=== PATIENT | female | born 1960 | race Caucasian/White ===

== ENCOUNTER → 2016-11-06 | Outpatient (CLI) | payer OTHER ==
--- NOTE | 2016-11-07 12:59 | MM ---
Reason for exam: screening (asymptomatic). Last mammogram was performed 3 years ago. History: Family history of breast cancer in paternal aunt. Took hormonal contraceptives for 10 years. Taking other hormone for 6 months. Physical Findings: A clinical breast exam by your physician is recommended on an annual basis and results should be correlated with mammographic findings. MG Screening Mammo w CAD Bilateral CC, MLO, and XCCL view(s) were taken. Prior study comparison: October 28, 2013, bilateral MG screening mammo w CAD. The breast tissue is heterogeneously dense. This may lower the sensitivity of mammography. Finding: There are a few typically benign round calcifications in the right breast. Increased fatty tissue since 2014. Asymmetric breast tissue in the right breast. There is no discrete abnormality. ASSESSMENT: Benign, BI-RAD 2 RECOMMENDATION: Routine screening mammogram of both breasts in 1 year.
== END | disposition home or self-care (01) ==
LOC: RADMAMWWP 14:43
PROVIDERS: ATTEND Internal Medicine
DX: Z12.31 Encounter for screening mammogram for malignant neoplasm of breast (principal)

== ENCOUNTER 2019-10-11 09:09 | Day surgery (SDC) | payer OTHER ==
[2019-10-06 13:52] VITALS: BMI 43.8
[~2019-10-11 09:09] MED LIST: LACTATED RINGERS 1,000 ML IV SCH; LIDOCAINE 1% (10MG/ML) FOR IV START INTRADERMA PRN
[2019-10-11 09:33] VITALS: TEMP 97.8
[2019-10-11] MEDS ORDERED: PROPOFOL 10 MG/ML 20 ML VIAL IV ONE (09:57)
--- NOTE | 2019-10-11 10:01 | P.GSHP ---
History of Present Illness H&P Date: 10/11/19 Chief Complaint: Colon cancer screening, history of polyps Patient today for colonoscopy. Last colonoscopy 5.5 years ago. Patient had cecal polyp tubular adenoma at that time. Family history of colon cancer in her grandmother parents. No bowel complaints. No rectal bleeding. Past Medical History Past Medical History: GERD/Reflux, Hypertension Additional Past Medical History / Comment(s): hx kidney stones, hayfever, endometriosis History of Any Multi-Drug Resistant Organisms: None Reported Past Surgical History: Cholecystectomy, Orthopedic Surgery Additional Past Surgical History / Comment(s): rt upper arm plates and screws, exploratory laparotomy, kidney stone stent placed Past Anesthesia/Blood Transfusion Reactions: Previous Problems w/ Anesthesia, Family History of Problems w/ Anesthesia Additional Past Anesthesia/Blood Transfusion Reaction / Comment(s): slow to wake up. sisters-ponv Smoking Status: Never smoker Medications and Allergies Home Medications Medication Instructions Recorded Confirmed Type Biotin/Carotene 1 tab PO DAILY 10/06/19 10/06/19 History Celecoxib [CeleBREX] 200 mg PO DAILY 10/06/19 10/06/19 History Ergocalciferol (Vitamin D2) 50,000 unit PO TU 10/06/19 10/06/19 History [Drisdol] Esomeprazole Magnesium 40 mg PO DAILY 10/06/19 10/06/19 History Multivitamins, Thera [Multivitamin 1 tab PO DAILY 10/06/19 10/06/19 History (formulary)] amLODIPine BESYLATE 5 mg PO DAILY 10/06/19 10/06/19 History Allergies Allergy/AdvReac Type Severity Reaction Status Date / Time No Known Allergies Allergy Verified 10/06/19 13:43 Surgical - Exam Vital Signs Temp Pulse Resp BP Pulse Ox 97.8 F 91 16 167/97 96 10/11/19 09:32 10/11/19 09:32 10/11/19 09:32 10/11/19 09:32 10/11/19 09:32 Physical exam: General: Well-developed, well-nourished HEENT: Normocephalic, sclerae nonicteric Abdomen: Nontender, nondistended Extremities: No edema Neuro: Alert and oriented Assessment and Plan (1) Colon cancer screening Narrative/Plan: Will proceed with colonoscopy at this time Current Visit: Yes Status: Acute Code(s): Z12.11 - ENCOUNTER FOR SCREENING FOR MALIGNANT NEOPLASM OF COLON SNOMED Code(s): 916858515
--- NOTE | 2019-10-11 10:17 | P.PCN ---
Date of Procedure: 10/11/19 Procedure(s) Performed: PREOPERATIVE DIAGNOSIS: Colon cancer screening, history of polyps POSTOPERATIVE DIAGNOSIS: Diverticulosis PROCEDURE: Colonoscopy ANESTHESIA: MAC SURGEON: Kartik Mckeon M.D. SPECIMENS: None ENDOSCOPIC PROCEDURE: The patient was placed on the endoscopy table in the left decubitus position. The Olympus colonoscope was inserted into the anus and passed under direct visualization to the base of the cecum. The appendiceal orifice was visualized. From that point the scope was slowly withdrawn inspecting all surfaces carefully. There were no neoplastic inflammatory or polypoid lesions throughout the cecum, ascending, transverse, descending, sigmoid and rectum. There was mild sigmoid diverticulosis noted. Digital rectal examination was normal. The patient was taken to the recovery room in stable condition per anesthesia guidelines. RECOMMENDATIONS: Resume diet. Follow-up colonoscopy 5 years
[2019-10-11 10:45] VITALS: BP 140/80; PULSE 79; RESP 18
== END 2019-10-11 11:13 | disposition home or self-care (01) ==
LOC: ORWHC2ENDO 09:09
PROVIDERS: ATTEND Surgery
DX: Z12.11 Encounter for screening for malignant neoplasm of colon (principal); K57.30 Diverticulosis of large intestine without perforation or abscess without bleeding; Z86.010 Personal history of colon polyps; Z80.0 Family history of malignant neoplasm of digestive organs; I10 Essential (primary) hypertension; K21.9 Gastro-esophageal reflux disease without esophagitis; E66.01 Morbid (severe) obesity due to excess calories; Z90.49 Acquired absence of other specified parts of digestive tract; Z87.442 Personal history of urinary calculi; Z79.1 Long term (current) use of non-steroidal anti-inflammatories (NSAID); Z79.899 Other long term (current) drug therapy; Z98.890 Other specified postprocedural states; Z68.41 Body mass index [BMI] 40.0-44.9, adult
CPT/HCPCS: G0105; J2704; 45378

== ENCOUNTER → 2020-08-29 | Outpatient (CLI) | payer OTHER | END | disposition home or self-care (01) | CPT/HCPCS: 77067 ==

== ENCOUNTER → 2021-09-03 | Outpatient (CLI) | payer OTHER ==
--- NOTE | 2021-09-04 08:40 | MM ---
Reason for Exam: Screening (asymptomatic). Last mammogram was performed 1 year(s) and 1 month(s) ago. Patient History: Menarche at age 14. First Full-Term at age 26. Postmenopausal. Patient used Hormonal Contraceptives for 10 years. Paternal aunt had breast cancer. Risk Values: Perri 5 year model risk: 1.2%. NCI Lifetime model risk: 6.7%. Prior Study Comparison: 10/28/2013 Bilateral Screening Mammogram, [facility]. 11/06/2016 Bilateral Screening Mammogram, [facility]. 08/29/2020 Bilateral Screening Mammogram, [facility]. Tissue Density: There are scattered fibroglandular densities. Findings: Analyzed By CAD. Some stable small well-circumscribed masses bilaterally. On X CCL views suggestion of new 8 mm focal asymmetric density anterior to middle depth approximately 8 cm distance from nipple in the right breast and oval 9 mm focal asymmetric density 8 cm distance from nipple anterior to middle depth outer aspect left breast. Corresponding abnormality is not clearly seen on MLO views. There is no suspicious group of microcalcifications in either breast. Overall Assessment: Incomplete: need additional imaging evaluation, BI-RAD 0 Management: Special View Mammogram of both breasts. Return for additional spot views and true lateral views of both breasts. 3-D imaging preferred if possible. Electronically signed and approved by: Davon Johnston M.D.
== END | disposition home or self-care (01) ==
LOC: RADMAMWWP 09:21
PROVIDERS: ATTEND Internal Medicine
DX: Z12.31 Encounter for screening mammogram for malignant neoplasm of breast (principal)
CPT/HCPCS: 77067

== ENCOUNTER → 2021-09-05 | Outpatient (CLI) | payer OTHER ==
--- NOTE | 2021-09-05 10:39 | USB ---
Reason for Exam: Additional evaluation requested from abnormal screening. Last screening mammogram was performed less than 1 month ago. Patient History: Menarche at age 14. First Full-Term at age 26. Postmenopausal. Patient used Hormonal Contraceptives for 10 years. Paternal aunt had breast cancer. Risk Values: Perri 5 year model risk: 1.2%. NCI Lifetime model risk: 6.7%. Prior Study Comparison: 11/06/2016 Bilateral Screening Mammogram, [facility]. 08/29/2020 Bilateral Screening Mammogram, [facility]. 09/03/2021 Bilateral MG screening mammo w CAD, [facility]. Tissue Density: There are scattered fibroglandular densities. Findings: Analyzed By CAD. Mammogram Nodularity persists upper outer quadrant bilaterally. Ultrasound is advised.. Technique: Method: Targeted. Patient Position: Supine. scanned bilateral upper outer quads. Findings: The upper outer quadrant of both breasts was scanned. Right 1000 8CFN [id number] side by side versus septated cyst, Left 300 7CFN [id number] lobular cyst. Overall Assessment: Benign, BI-RAD 2 Assessment: MG 3D work up w/cad [facility] - Bilateral: Incomplete: need additional imaging evaluation, BI-RAD 0. US breast limited BILAT - Bilateral: Benign, BI-RAD 2. Management: Screening Mammogram of both breasts in 1 year. A clinical breast exam by your physician is recommended on an annual basis and results should be correlated with mammographic findings. Results were given to the patient verbally at the time of exam. Electronically signed and approved by: Luigi Villagran M.D. Radiologis
== END | disposition home or self-care (01) ==
LOC: RADMAMWWP 08:49
PROVIDERS: ATTEND Internal Medicine
DX: R92.8 Other abnormal and inconclusive findings on diagnostic imaging of breast (principal)
CPT/HCPCS: 77062; 77066

== ENCOUNTER → 2022-09-08 | Outpatient (CLI) | payer OTHER ==
--- NOTE | 2022-09-08 11:46 | MM ---
Reason for Exam: Screening (asymptomatic). Last screening mammogram was performed 12 month(s) ago. Patient History: Menarche at age 14. First Full-Term at age 26. Postmenopausal. Patient used Hormonal Contraceptives for 10 years. Paternal aunt had breast cancer. Risk Values: Perri 5 year model risk: 1.3%. NCI Lifetime model risk: 6.6%. Prior Study Comparison: 08/29/2020 Bilateral Screening Mammogram, [facility]. 09/03/2021 Bilateral MG screening mammo w CAD, [facility]. 09/05/2021 Bilateral MG 3D work up w/cad [facility], [facility]. Tissue Density: The breast tissue is almost entirely fat. Findings: Analyzed By CAD. There is no suspicious group of microcalcifications or new suspicious mass in either breast. Overall Assessment: Negative, BI-RAD 1 Management: Screening Mammogram of both breasts in [address] [facility] will attempt to contact patient to return for supplemental views and ultrasound if indicated. Patient should continue monthly self-breast exams. A clinical breast exam by your physician is recommended on an annual basis. This exam should not preclude additional follow-up of suspicious palpable abnormalities. Note on Perri scores and lifetime risk: 1. A Perri score greater than 3% is considered moderate risk. If this is the case, consider specialist referral to assess eligibility for a risk reducing agent. 2. If overall lifetime risk for the development of breast cancer is 20% or higher, the patient may qualify for future screening with alternating mammogram and breast MRI. Electronically signed and approved by: Lencho Garcia DO
== END | disposition home or self-care (01) ==
LOC: RADMAMWWP 11:20
PROVIDERS: ATTEND Internal Medicine
DX: Z12.31 Encounter for screening mammogram for malignant neoplasm of breast (principal); Z78.0 Asymptomatic menopausal state; Z80.3 Family history of malignant neoplasm of breast
CPT/HCPCS: 77063; 77067

== ENCOUNTER → 2023-09-24 | Outpatient (CLI) | payer OTHER ==
--- NOTE | 2023-09-25 09:50 | MM ---
Reason for Exam: Screening (asymptomatic). Last screening mammogram was performed 12 month(s) ago. Patient History: Menarche at age 14. First Full-Term at age 26. Postmenopausal. Patient used Hormonal Contraceptives for 10 years. Paternal aunt had breast cancer. Risk Values: Perri 5 year model risk: 1.3%. NCI Lifetime model risk: 6.4%. Prior Study Comparison: 09/03/2021 Bilateral MG screening mammo w CAD, [facility]. 09/05/2021 Bilateral MG 3D work up w/cad [facility], [facility]. 09/08/2022 Bilateral MG 3D screening mammo w/cad, [facility]. Tissue Density: There are scattered areas of fibroglandular density. Findings: Analyzed By CAD. There is no suspicious group of microcalcifications or new suspicious mass in either breast. Overall Assessment: Negative, BI-RAD 1 Management: Screening Mammogram of both breasts in 1 year. . Patient should continue monthly self-breast exams. A clinical breast exam by your physician is recommended on an annual basis. This exam should not preclude additional follow-up of suspicious palpable abnormalities. Note on Perri scores and lifetime risk: 1. A Perri score greater than 3% is considered moderate risk. If this is the case, consider specialist referral to assess eligibility for a risk reducing agent. 2. If overall lifetime risk for the development of breast cancer is 20% or higher, the patient may qualify for future screening with alternating mammogram and breast MRI. Electronically signed and approved by: Luigi Villagran M.D. Radiologis
== END | disposition home or self-care (01) ==
LOC: RADMAMWWP 11:54
PROVIDERS: ATTEND Internal Medicine
DX: Z12.31 Encounter for screening mammogram for malignant neoplasm of breast (principal); Z78.0 Asymptomatic menopausal state; Z80.3 Family history of malignant neoplasm of breast; R92.323 Mammographic fibroglandular density, bilateral breasts
CPT/HCPCS: 77063; 77067

== ENCOUNTER → 2024-08-31 | Outpatient (CLI) | payer OTHER ==
[2024-08-31 13:27] LABS: INR 0.9 (<1.2); Partial Thromboplastin Time 24.5 sec (22.0-30.0); Prothrombin Time 10.4 sec (10.0-12.5)
[2024-08-31 15:14] LABS: HCT 45.3 % (37.2-46.3); HGB 15.2 g/dL (12.0-15.0); MCH 29.9 pg (27.0-32.0); MCHC 33.6 g/dL (32.0-37.0); MCV 89.0 FL (80.0-97.0); NRBC Per 100 WBC 0 X 10*3/uL (0.00-0.01); Platelet Count 252 X 10*3/uL (140-440); RBC 5.09 X 10*6/uL (4.10-5.20); RDW 13.6 % (11.5-14.5); WBC 9.76 X 10*3/uL (4.50-10.00)
[2024-08-31 15:36] LABS: ALT 37 U/L (8-44); AST 30 U/L (13-35); Albumin 4.5 g/dL (3.8-4.9); Albumin/Globulin Ratio 1.96 Ratio (1.60-3.17); Alkaline Phosphatase 111 U/L (41-126); Anion Gap 13.50 mmol/L (4.00-12.00); BUN/Creat Ratio 17.40 Ratio (12.00-20.00); Blood Urea Nitrogen 17.4 mg/dL (9.0-27.0); Calcium 9.9 mg/dL (8.7-10.3); Carbon Dioxide 24.5 mmol/L (21.6-31.8); Chloride 103 mmol/L (96-109); Globulin 2.3 g/dL (1.6-3.3); Glucose 100 mg/dL (70-110); Potassium 4.2 mmol/L (3.5-5.5); Sodium 141 mmol/L (135-145); Total Protein 6.8 g/dL (6.2-8.2)
== END | disposition home or self-care (01) ==
LOC: LABPAT 12:08
PROVIDERS: ATTEND Orthopaedic Surgery
DX: Z01.818 Encounter for other preprocedural examination (principal); I21.3 ST elevation (STEMI) myocardial infarction of unspecified site; I49.3 Ventricular premature depolarization; E11.9 Type 2 diabetes mellitus without complications; M17.11 Unilateral primary osteoarthritis, right knee; Z22.322 Carrier or suspected carrier of Methicillin resistant Staphylococcus aureus
CPT/HCPCS: 36415; 80053; 83036; 85027; 85610; 85730; 87070; 93005

== ENCOUNTER → 2024-09-12 | Outpatient (CLI) | payer OTHER ==
--- NOTE | 2024-09-12 08:56 | CT ---
EXAMINATION TYPE: CT right knee - TRINI Protocol DATE OF EXAM: 09/12/2024 8:38 AM COMPARISON: None. CLINICAL INDICATION: Female, 64 years old with history of M17.11 PRIMARY OSTEOARTH OR RT KNEE, M25.56 1; PHH, RT Knee TRINI, pain, TECHNIQUE: Axial images were obtained of the bilateral hips, knee and bilateral ankles: CT right kne e - TRINI Protocol, Additional coronal and sagittal reformatted images and soft tissue and bone window were obtained for review of the bilateral hips, knee and bilateral ankles. Contrast used: mL of , (None if empty) Oral contrast used: (None if empty) CT DLP: 1011 mGycm, Automated exposure control for dose reduction was used. FINDINGS: The visualized portion of the hips demonstrate mild osteoarthrosis changes with osteophyte formation of the acetabulum. No acute intrapelvic process. The bony structures of the pelvis are intact. The visualized knee demonstrates osteophyte formation of the tibial plateau, the patella and femoral condyles. There is complete joint space narrowing and subchondral sclerosis in the medial knee. No e vidence of fracture. The visualized ankles demonstrates multifocal osteoarthrosis changes with osteophyte formation and mi ld joint space narrowing. No evidence of fractures. Other: No significant findings. IMPRESSION: End-stage osteoarthrosis changes of the knee. [facility], , 09/12/2024 8:54 AM
== END | disposition home or self-care (01) ==
LOC: RADCTMAIN 07:53
PROVIDERS: ATTEND Orthopaedic Surgery
DX: M17.11 Unilateral primary osteoarthritis, right knee (principal)

== ENCOUNTER 2024-09-23 10:15 | Day surgery (SDC) | payer OTHER ==
[2024-09-16 15:10] VITALS: BMI 47.7
[~2024-09-23 10:15] MED LIST changes: +DEXAMETHASONE SOD PHOSPHATE 10 MG/ML 1 ML VIAL IV PRN; -LACTATED RINGERS 1,000 ML IV SCH; -LIDOCAINE 1% (10MG/ML) FOR IV START INTRADERMA PRN; +TRANEXAMIC 1,000 MG/100ML-NACL 1,000 MG in SALINE 1 100ML.BAG IV PRN; +TRANEXAMIC 1,000 MG/100ML-NACL 1,000 MG in SALINE 1 100ML.BAG IVPB PRN
[2024-09-23] MEDS ORDERED: HYDROmorphone 0.5 MG/0.5 ML SYRINGE IVP PRN ×3 (10:35→14:31)
[2024-09-23] MEDS ORDERED: fentaNYL (PF) 50 MCG/ML 2 ML AMP IVP PRN (10:35)
[2024-09-23] MEDS ORDERED: LIDOCAINE 1% (10MG/ML) FOR IV START INTRADERMA PRN (10:35)
[2024-09-23] MEDS: IV FLUID CONTINUATION 1,000 ML IV ONE (10:55)
[2024-09-23] MEDS: ONDANSETRON 4 MG/2 ML VIAL IVP PRN ×2 (11:00→18:31)
[2024-09-23] MEDS: DEXAMETHASONE SOD PHOSPHATE 4 MG/ML 1 ML VIAL IV ONE (11:00)
[2024-09-23] MEDS: LACTATED RINGERS 1,000 ML IV SCH (11:00)
[2024-09-23] MEDS: oxyCODONE ER 10 MG TAB.ER.12H PO PRN (11:01)
[2024-09-23] MEDS: FAMOTIDINE 20 MG/2 ML VIAL IVP PRN (11:01)
[2024-09-23] MEDS: KETOROLAC 15 MG/ML 1 ML VIAL IVP PRN (11:01)
[2024-09-23] MEDS: DOCUSATE 100 MG CAP PO PRN (11:02)
[2024-09-23] MEDS: ACETAMINOPHEN TAB 500 MG TAB PO PRN ×2 (11:02→21:37)
[2024-09-23] MEDS: MIDAZOLAM 2 MG/2 ML VIAL IV PRN (11:16)
[2024-09-23] MEDS: fentaNYL (PF) 50 MCG/ML 2 ML AMP IVP STA (11:52)
--- NOTE | 2024-09-23 11:54 | P.ANPRN ---
Procedure Note - Anesthesia - Nerve Block Performed Right iPack Single Time Out Performed: Yes Date of Procedure: 09/23/24 Procedure Start Time: 11:16 Procedure Stop Time: 11:21 Location of Patient: PreOp Indication: Acute Post-Operative Pain, Analgesia, Requested by Surgeon Sedation Type: Sedate with meaningful contact maintained Preparation: Sterile Prep Position: Left Lateral Catheter: None Needle Types: Pajunk Needle Gauge: 21 Ultrasound used to visualize needle placement: Yes Ultrasound used to observe medication spread: Yes Injectate: 0.5% Ropivacaine (see comment for volume) (Ropivacaine 20 mL plus Decadron 4 mg.) Blood Aspirated: No Pain Paresthesia on Injection Noted: No Resistance on Injection: Normal Image Stored and Saved: Yes Events: Uneventful and Well Tolerated
--- NOTE | 2024-09-23 11:55 | P.ANPRN ---
Procedure Note - Anesthesia - Nerve Block Performed Right Adductor Canal Single Time Out Performed: Yes Date of Procedure: 09/23/24 Procedure Start Time: Procedure Stop Time: Location of Patient: PreOp Indication: Acute Post-Operative Pain, Analgesia, Requested by Surgeon Sedation Type: Sedate with meaningful contact maintained Preparation: Sterile Prep Position: Sitting Catheter: None Needle Types: Pajunk Needle Gauge: 21 Ultrasound used to visualize needle placement: Yes Ultrasound used to observe medication spread: Yes Injectate: 0.5% Ropivacaine (see comment for volume) (Ropivacaine 20 mL plus Decadron 4 mg) Blood Aspirated: No Pain Paresthesia on Injection Noted: No Resistance on Injection: Normal Image Stored and Saved: Yes Events: Uneventful and Well Tolerated
[2024-09-23] MEDS ORDERED: MIDAZOLAM 2 MG/2 ML VIAL ONE (12:16)
[2024-09-23] MEDS ORDERED: LIDOCAINE 1% INJ 10MG/ML (20 ML MDV) ONE (12:16)
[2024-09-23] MEDS ORDERED: TRANEXAMIC 1,000 MG/100ML-NACL PREMIX BAG ONE (12:16)
[2024-09-23] MEDS ORDERED: ROPIVACAINE 5 MG/ML 30 ML VIAL ONE (12:16)
[2024-09-23] MEDS ORDERED: PROPOFOL 10 MG/ML 20 ML VIAL IV ONE (12:16)
[2024-09-23] MEDS ORDERED: KETAMINE HCL IN 0.9 % NACL 50 MG/5 ML SYRINGE ONE (12:16)
[2024-09-23] MEDS ORDERED: fentaNYL (PF) 50 MCG/ML 2 ML AMP ONE (12:16)
[2024-09-23] MEDS ORDERED: SUCCINYLCHOLINE CHLORIDE 200 MG/10 ML VIAL IV ONE (12:16)
[2024-09-23] MEDS ORDERED: DEXAMETHASONE SOD PHOSPHATE 4 MG/ML 1 ML VIAL ONE (12:16)
[2024-09-23] MEDS: ROPIVACAINE/EPI/CLONIDINE/KET 50 ML SYRINGE MISCELLANE PRN (13:01)
[2024-09-23] MEDS: LACTATED RINGERS 1,000 ML IV ONE (14:17)
[2024-09-23] MEDS ORDERED: NALOXONE 0.4 MG/ML 1 ML VIAL IV PRN (14:31)
[2024-09-23] MEDS ORDERED: HYDROmorphone 1 MG/ML 1 ML SYRINGE IVP PRN (14:31)
[2024-09-23] MEDS ORDERED: MAGNESIUM HYDROXIDE 2,400 MG/30 ML CUP PO PRN (14:31)
--- NOTE | 2024-09-23 14:36 | P.OP ---
Date of Procedure: 09/23/24 Preoperative Diagnosis: 1. Severe right knee osteoarthritis 2. BMI 47.1 Postoperative Diagnosis: Same Procedure(s) Performed: 1. Right total knee arthroplasty 2. Computer assisted musculoskeletal navigation using CT/MRI images 3. Application of negative pressure incisional wound VAC, DME, < 50 sq cm, incision 20-cm Implants: 1. Lupe Triathlon CR Femur Size #4 2. Lupe Triathlon [place] Tibial Base Size #4 3. [place]rel Triathlon CS poly Size #4, 9-mm 4. Lupe Triathlon all poly patella, Size #32 Anesthesia: MADDIE, regional Surgeon: Ruben Richard Bartacker #1: Nicolette Lacey Estimated Blood Loss (ml): 200 IV fluids (ml): 800 Pathology: none sent Condition: stable Disposition: PACU Indications for Procedure: I met with the patient preoperatively in the office setting and discussed treatment of their symptomatic knee arthritis. They failed a long course of nonsurgical treatment and elected to proceed with an elective total knee replacement. I discussed the potential risks and complications at length and gave them ample time to ask questions. Risks discussed included: risks from anesthesia, superficial site surgical infection, acute and/or chronic periprosthetic joint infection, delayed wound healing, drainage, wound necrosis, instability, stiffness, stiffness requiring manipulation and/or revision surgery, damage to local blood vessels or nerves, aseptic loosening of the implants, extensor mechanism issues including disruption, patellar maltracking, avascular necrosis etc., continued or worsened knee pain, generalized dissatisfaction with surgical outcome, need for revision surgery, an inability to regain preinjury level of function, DVT, PE, other medical complications, and possibly loss of life or limb. The patient voiced their understanding that while these are the most common complications other less common complications are possible. They provided both their verbal and written consent to go forward with surgery. The patient understands that she is at an increased risk of complication due to her elevated BMI of 47.1. She understands the increased risk of delayed wound healing, infection and mechanical failure of the implant. Operative Findings: Severe right knee arthritis Description of Procedure: The patient was identified in preoperative holding and the correct operative extremity was verified and marked with a marker. I reviewed the consent form with the patient at length. All of their questions were answered. The patient was given a block by anesthesia. They were then brought back to the operating room. They were transferred onto the operating room table where a general anesthetic, preoperative antibiotics, and tranexamic acid were administered by anesthesia. A tourniquet was applied to the proximal aspect of the operative extremity. The contralateral extremity was padded under the heel and secured to the operating room table with a nonsterile blue towel and tape. The ipsilateral arm was carefully draped across the patient's chest and secured with a pillow and foam. A post was applied over the lateral aspect of the ipsilateral thigh and a bolster was placed under the ipsilateral foot. I verified that the operative extremity was stable and the knee was flexed to 90. The operative extremity was then placed in a leg andrews, nonsterile drapes were applied, and the extremity was prepped and draped sterilely in the standard sterile fashion. Prior to starting surgery timeout was performed identifying the correct patient, operative extremity, and procedure. The leg was then elevated, exsanguinated with an Esmarch bandage, and the tourniquet was inflated. An anterior midline incision was made sharply with a scalpel. Once I had dissected deep to the superficial fascial layer medial and lateral flaps were elevated. A medial parapatellar arthrotomy was created. Upon opening the knee joint there were diffuse arthritic changes in all 3 compartments. The anterior horn of the medial meniscus were sharply released and a medial release was performed around the posterior medial corner of the knee to facilitate retractor placement. The fat pad was excised with electrocautery. Remnants of the ACL and PCL were then excised from the notch. 4 mm pins were then placed within the incision in the medial distal femur and proximal tibia. Arrays were applied to the pins and I verified they were completely tightened. The knee was then registered with the [employer] robot and manipulations in implant position were made to balance the knee and opitmize implant position. Using the [employer] robotic saw all cuts were made in accordance with our plan. After all bony fragments had been removed the cuts were verified with the planar probe. The tibia was then s ubluxed forward and sized. The knee was brought into flexion and a lamina enroute controller was placed to allow removal of the meniscal remnants both medially and laterally as well as posterior osteophytes. Local anesthetic was then infiltrated around the joint capsule. Trial implants were then placed within the knee. Range of motion and collateral ligament tension was then evaluated. Adjustments in implant size and position were then made accordingly. Once the knee was felt to be appropriately balanced the [place] pins were removed. The patella was then cut, sized, and punched. A trial patellar button was then placed. With the trial components in place, the patella tracked midline. The femur was then drilled and the trial component removed. The trial tibial component was then appropriately rotated, pinned, and prepared for the keel. All trial components were then removed from the knee. The knee was thoroughly irrigated with pulsatile lavage. Cement was prepared via vacuum mixing in a bowl on the back table. Once the cement had reached appropriate consistency, I hand pressurized cement into the tibia and gently impacted the tibial implant into place. Cement was carefully removed from around the tibial tray and the poly liner was tapped into placed, engaging the locking mechanism. The femur was then exposed and cement was hand pressurized into the cut surfaces. The femoral implant was gently tapped into place and cement was carefully removed. A wet lap sponge was used to wipe down the bearing surface of the femur and the knee was extended to further pressurize cement. With the knee extended, cement was pressurized into the cut surface of the patella and the patella button was placed and compressed with a clamp. All extruded cement was removed including from the pin sites. The knee was held in extension until the cement had fully hardened. Once the cement had hardened the knee was evaluated one final time with the final polyethylene liner in place. The knee had full extension and flexion and felt stable to varus and valgus stress throughout the arc of motion. The tourniquet was released and with the tourniquet down the patella tracked midline. All bleeders were controlled with electrocautery. The knee was then soaked for 3 minutes with a dilute Betadine soak. The knee was thoroughly irrigated using 3 L of sterile saline and pulsatile lavage. The extensor mechanism was then reapproximated using pop off Vicryl sutures followed by a running barbed suture. The knee was then closed in layers with a 0 strata fix for the deep fascial layer, 2-0 strata fix for the superficial subcutaneous layer and Monocryl and Steri-Strips for the skin. Due to the patient's body habitus an incisional wound VAC was applied. I verified that all instrument, sponge, and sharp counts were correct. The patient was then transferred off the operating room table, extubated, and brought to recovery having tolerated the procedure well. Nicolette Lacey NP was required as a skilled real estate legal assistant due to the complexity of surgery for patient positioning, draping, exposure, retraction, closure of wound and application of dressing. PLAN: The patient can weight-bear as tolerated on the operative extremity. DVT prophylaxis with aspirin 81 mg twice a day based on preoperative risk stratification. Follow-up in the office in 2 weeks for wound check and x-rays of the knee including an AP and lateral.
[2024-09-23] MEDS ORDERED: HYDROcodone/APAP 10-325MG 1 EACH TAB PO PRN (14:41)
[2024-09-23] MEDS ORDERED: HYDROcodone/APAP 5-325MG 1 EACH TAB PO PRN (14:41)
--- NOTE | 2024-09-23 15:28 | XR ---
EXAMINATION TYPE: XR knee limited RT DATE OF EXAM: 09/23/2024 3:23 PM COMPARISON: None. CLINICAL INDICATION: Female, 64 years old with history of post op right TKA, assess alignment, pain TECHNIQUE: 2 view(s) obtained. FINDINGS: Tibial femoral components are present. No acute fractures. Postsurgical soft tissue changes are prese nt. IMPRESSION: 1. No acute fractures post right knee replacement [facility], , 09/23/2024 3:26 PM
[2024-09-23] MEDS: ONDANSETRON 4 MG/2 ML VIAL IVP ONE (18:19)
[2024-09-23] MEDS: ASPIRIN 81 MG PO SCH (21:37)
[2024-09-23] MEDS: SENNOSIDES-DOCUSATE SODIUM 1 EACH TAB PO SCH (21:37)
[2024-09-24] MEDS: HYDROcodone/APAP 7.5-325MG 1 EACH TAB PO PRN (04:26)
--- NOTE | 2024-09-24 09:35 | P.DS ---
Providers Date of admission: 09/23/24 Attending physician: Ruben Richard Consults: 09/23/24 14:31 Consult Physician Routine Consulting Provider: Chase Renteria Consult Reason/Comments: medical management Do you want consulting provider notified?: Yes Primary care physician: Chase Renteria [facility] Course: Admitted after elective TKA. Post op nausea/vomiting. Seen POD#1 and was doing well. nausea improved. Wound VAC intact. Thigh/calf soft and compressible. Motor and sensory function intact. Tentatively cleared for d/c home pending PT and resolution of nausea. Patient Condition at Discharge: Good Plan - Discharge Summary Discharge Rx Participant: No New Discharge Prescriptions: New Docusate [Colace] 100 mg PO BID #30 capsule Diclofenac Sodium [Voltaren] 75 mg PO BID #60 tab Aspirin 81 mg PO BID #60 tab Omeprazole [PriLOSEC] 40 mg PO DAILY #30 cap Doxycycline Monohydrate [Monodox] 100 mg PO BID #28 cap Ondansetron [Zofran] 4 mg PO Q8HR PRN #20 tab PRN Reason: Nausea No Action Multivitamins, Thera [Multivitamin (formulary)] 1 tab PO DAILY amLODIPine BESYLATE 5 mg PO QAM Celecoxib [CeleBREX] 200 mg PO QAM Biotin/Carotene 1 tab PO DAILY Losartan Potassium 50 mg PO QAM Vitamin D (Unknown Dose) 1 tab PO DAILY Phentermine HCl [Adipex-P] 37.5 mg PO DAILY Famotidine 40 mg PO QAM Discharge Medication List Biotin/Carotene 1 tab PO DAILY 10/06/19 [History] Celecoxib [CeleBREX] 200 mg PO QAM 10/06/19 [History] Multivitamins, Thera [Multivitamin (formulary)] 1 tab PO DAILY 10/06/19 [History] amLODIPine BESYLATE 5 mg PO QAM 10/06/19 [History] Famotidine 40 mg PO QAM 09/16/24 [History] Losartan Potassium 50 mg PO QAM 09/16/24 [History] Phentermine HCl [Adipex-P] 37.5 mg PO DAILY 09/16/24 [History] Vitamin D (Unknown Dose) 1 tab PO DAILY 09/16/24 [History] Aspirin 81 mg PO BID #60 tab 09/23/24 [Rx] Diclofenac Sodium [Voltaren] 75 mg PO BID #60 tab 09/23/24 [Rx] Docusate [Colace] 100 mg PO BID #30 capsule 09/23/24 [Rx] Doxycycline Monohydrate [Monodox] 100 mg PO BID #28 cap 09/23/24 [Rx] Omeprazole [PriLOSEC] 40 mg PO DAILY #30 cap 09/23/24 [Rx] Ondansetron [Zofran] 4 mg PO Q8HR PRN #20 tab 09/24/24 [Rx] Follow up Appointment(s)/Referral(s): Ruben Richard MD [Medical Doctor] - 2 Weeks Activity/Diet/Wound Care/Special Instructions: 1. Weight-bear as tolerated on your operative extremity unless instructed otherwise. Use a walker or other assistive device to ambulate. 2. Leave surgical dressing in place. If your dressing becomes saturated with blood, there is drainage, or the dressing becomes loose please contact the office. 3. It is okay to shower with your surgical dressing, but do not submerge in water (no hot tubs, bath's, swimming etc.) 4. Make sure to take her blood clot prevention medication as prescribed (aspir in, Eliquis, Xarelto, and Plavix are commonly prescribed medications for blood clot prevention) 5. While taking [place] or Percocet for pain make sure you're taking a stool softener (Colace) and drink lots of water. 6. Keep all follow-up appointments as scheduled. You will usually be seen in 1-2 weeks following surgery. 7. Please contact the office with any questions or concerns [phone] Discharge Disposition: HOME WITH HOME HEALTH SERVICES
[2024-09-24 10:06] LABS: Basophils # (A) 0.03 X 10*3/uL (0.00-0.10); Basophils % (A) 0.2 %; Eosinophils # (A) 0 X 10*3/uL (0.04-0.35); Eosinophils % (A) 0 %; HCT 38.3 % (37.2-46.3); HGB 12.7 g/dL (12.0-15.0); Immature Grans, Automated 0.50 %; Lymphocytes # (A) 1.45 X 10*3/uL (0.90-5.00); Lymphocytes % (A) 7.8 %; MCH 30.3 pg (27.0-32.0); MCHC 33.2 g/dL (32.0-37.0); MCV 91.4 FL (80.0-97.0); Monocytes # (A) 0.87 X 10*3/uL (0.20-1.00); Monocytes % (A) 4.7 %; NRBC Per 100 WBC 0 X 10*3/uL (0.00-0.01); Neutrophils # (A) 16.22 X 10*3/uL (1.80-7.70); Neutrophils % (A) 86.8 %; Platelet Count 221 X 10*3/uL (140-440); RBC 4.19 X 10*6/uL (4.10-5.20); RDW 13.3 % (11.5-14.5); WBC 18.67 X 10*3/uL (4.50-10.00)
--- NOTE | 2024-09-24 11:18 | P.CONS ---
History of Present Illness - Reason for Consult Consult date: 09/24/24 Medical management - History of Present Illness Amirah Mack is 64-year-old female presented for an elective right knee art hroplasty with Dr. Richard. Patient has a past medical history of GERD, hypertension, osteoarthritis, kidney stones, migraines. At this time patient is currently postop day 1. Patient complained about nausea and vomiting throughout the night. This symptom is improving. Current vital signs temp 97.7, heart rate 73, respiratory rate 18, blood pressure 151/83 with pulse ox of 97% on room air. Patient denies chest pain or shortness of breath. Patient denies nausea vomiting or diarrhea. Patient denies any urinary burning or frequency. Tentative plans for discharge home today per orthopedic services. Patient has been voiding independently. Discharge plan Home with Review of Systems Please refer to HPI otherwise unremarkable Past Medical History Past Medical History: GERD/Reflux, Hypertension, Osteoarthritis (OA) Additional Past Medical History / Comment(s): Hx kidney stones, hayfever, endometriosis, hx ocular migraines, sleep apnea test scheduled for . History of Any Multi-Drug Resistant Organisms: None Reported Past Surgical History: Cholecystectomy, Orthopedic Surgery Additional Past Surgical History / Comment(s): Right upper arm surgery with plates and screws, exploratory laparotomy, kidney stone stent placed. Past Anesthesia/Blood Transfusion Reactions: Postoperative Nausea & Vomiting (PONV) Additional Past Anesthesia/Blood Transfusion Reaction / Comm: Slow to wake up. Sisters-PONV. Past Psychological History: No Psychological Hx Reported Smoking Status: Never smoker Past Alcohol Use History: Rare Past Drug Use History: None Reported - Past Family History Father Family Medical History: No Reported History Medications and Allergies Home Medications Medication Instructions Recorded Confirmed Type Biotin/Carotene 1 tab PO DAILY 10/06/19 09/23/24 History Multivitamins, Thera [Multivitamin 1 tab PO DAILY 10/06/19 09/23/24 History (formulary)] amLODIPine BESYLATE 5 mg PO QAM 10/06/19 09/23/24 History Losartan Potassium 50 mg PO QAM 09/16/24 09/23/24 History Phentermine HCl [Adipex-P] 37.5 mg PO DAILY 09/16/24 09/23/24 History Vitamin D (Unknown Dose) 1 tab PO DAILY 09/16/24 09/23/24 History Aspirin 81 mg PO BID #60 tab 09/23/24 Rx Diclofenac Sodium [Voltaren] 75 mg PO BID #60 tab 09/23/24 Rx Docusate [Colace] 100 mg PO BID #30 capsule 09/23/24 Rx Doxycycline Monohydrate [Monodox] 100 mg PO BID #28 cap 09/23/24 Rx Famotidine [Pepcid] 40 mg PO BID #120 tab 09/24/24 Rx Ondansetron [Zofran] 4 mg PO Q8HR PRN #20 tab 09/24/24 Rx Allergies Allergy/AdvReac Type Severity Reaction Status Date / Time No Known Allergies Allergy Verified 09/23/24 10:37 Physical Exam Vitals: Vital Signs Temp Pulse Pulse Pulse Resp BP Pulse Ox 09/24/24 07:11 97.7 F 73 18 151/83 97 09/24/24 01:25 97.5 F L 71 18 155/81 97 09/23/24 20:10 98.4 F 85 18 128/70 96 09/23/24 18:00 78 16 147/89 94 L 09/23/24 17:30 84 16 146/85 95 09/23/24 17:00 81 16 151/83 95 09/23/24 16:30 87 16 143/83 97 09/23/24 16:00 82 16 147/77 94 L 09/23/24 15:40 83 16 148/80 96 09/23/24 15:25 82 16 139/76 94 L 09/23/24 15:10 82 16 140/76 95 09/23/24 14:55 77 16 135/80 96 09/23/24 14:40 77 16 116/66 91 L 09/23/24 14:25 97.0 F L 76 14 143/73 91 L 09/23/24 11:36 84 20 128/89 98 09/23/24 11:31 82 20 148/94 97 09/23/24 11:26 74 18 123/73 99 09/23/24 11:21 84 18 133/65 99 09/23/24 11:16 80 20 163/87 99 FiO2 09/24/24 07:11 09/24/24 01:25 09/23/24 20:10 09/23/24 18:00 09/23/24 17:30 09/23/24 17:00 09/23/24 16:30 09/23/24 16:00 09/23/24 15:40 09/23/24 15:25 09/23/24 15:10 09/23/24 14:55 09/23/24 14:40 09/23/24 14:25 09/23/24 11:36 09/23/24 11:31 09/23/24 11:26 36 09/23/24 11:21 09/23/24 11:16 37 Intake and Output 09/23/24 09/24/24 09/24/24 22:59 06:59 14:59 Other: Voiding Method Bedside Commode # Voids 1 3 Weight 136.4 kg Head normocephalic Neck supple Lungs clear to auscultation bilaterally no wheezing or crackles Heart regular rate and rhythm S1-S2, no rub or gallop Abdomen is soft nontender nondistended positive bowel sounds no hepatosplenomegaly Extremities no edema Neuro alert and orientated to 3 Results CBC & Chem 7: 09/24/24 04:04 Labs: Abnormal Lab Results - Last 24 Hours (Table) 09/24/24 Range/Units 04:04 WBC 18.67 H (4.50-10.00) X 10*3/uL Immature Gran # 0.10 H (0.00-0.04) X 10*3/uL Neutrophils # 16.22 H (1.80-7.70) X 10*3/uL Eosinophils # 0 L (0.04-0.35) X 10*3/uL Assessment and Plan Assessment: Status post right knee arthroplasty with Dr. Richard on 09/23/2024 Postoperative nausea and vomiting resolving History of GERD History of essential hypertension History of osteoarthritis Thank you for this consultation we will continue to follow patient closely throughout stay
[2024-09-24 14:27] VITALS: BP 133/80; PULSE 83; RESP 19; TEMP 97.9
[2024-09-24] MEDS ORDERED: FAMOTIDINE 20 MG TAB PO SCH (21:00)
[2024-09-25] MEDS ORDERED: FAMOTIDINE 20 MG TAB PO SCH (09:00)
[2024-09-25] MEDS ORDERED: amLODIPine 5 MG TAB PO SCH (09:00)
[2024-09-25] MEDS ORDERED: LOSARTAN 50 MG TAB PO SCH (09:00)
== END 2024-09-24 15:27 | disposition home health service (06) ==
LOC: OR 10:15 → 4SSUR 14:21 → OR 09-24 15:27
PROVIDERS: ATTEND Orthopaedic Surgery
DX: M17.11 Unilateral primary osteoarthritis, right knee (principal); K21.9 Gastro-esophageal reflux disease without esophagitis; G47.33 Obstructive sleep apnea (adult) (pediatric); I10 Essential (primary) hypertension; Z87.442 Personal history of urinary calculi; Z90.49 Acquired absence of other specified parts of digestive tract; Z79.82 Long term (current) use of aspirin; Z79.899 Other long term (current) drug therapy
CPT/HCPCS: 0055T; 27447; 64447; 64473; 85025